=== PATIENT | female | born 1970 | race African-American/Black ===

== ENCOUNTER 2016-09-17 05:51 | Emergency (ER) | payer BC, OTHER ==
[~2016-09-17] VITALS: Ht 162.6 cm; Wt 65.0 kg
[2016-09-17 05:53] VITALS: Ht 162.6 cm; Wt 65.0 kg
[2016-09-17] MEDS ORDERED: KETOROLAC 60 MG INJ IM STA (06:32)
--- NOTE | 2016-09-17 07:59 | RADRPT ---
PROCEDURE: CHEST - 1 VIEW CLINICAL INDICATION: 45-year-old female with chest pain. TECHNIQUE: A single frontal PA view of the chest was performed. The images were reviewed on a PAC S workstation. COMPARISON: None. FINDINGS: The cardiomediastinal silhouette has a normal appearance. There is no evidence for an infiltrate. There is no evidence for congestive heart failure. There is no evidence for pneumothorax. The osseou s structures are intact. IMPRESSION: No evidence for active cardiopulmonary disease. .Donovan Rockwell MD, MD Date Time Electronically viewed and signed by .Donovan Rockwell MD, on 09/17/2016 07:58 .M/
--- NOTE | 2016-09-17 07:59 | RADRPT ---
PROCEDURE: LEFT SHOULDER CLINICAL INDICATION: 45-year-old female with left shoulder pain. TECHNIQUE: Three views of the left shoulder were obtained. The images reviewed on a PACS workstati on. COMPARISON: Chest x-ray obtained concurrently. FINDINGS: No evidence of fracture or dislocation is seen. The glenohumeral and acromioclavicular joint spaces appear preserved. Limited views of the clavicle and thorax are unremarkable. IMPRESSION: Unremarkable left shoulder radiographs. .Donovan Rockwell MD, Date Time Electronically viewed and signed by .Donovan Rockwell MD, on 09/17/2016 07:59 .M/
--- NOTE | 2016-09-17 08:02 | RADRPT ---
PROCEDURE: LUMBAR SPINE - 3 VIEWS CLINICAL INDICATION: 45-year-old female with back pain. TECHNIQUE: AP, lateral and cone-down lateral view of the lumbar spine were obtained. The images we re reviewed on a PACS workstation. COMPARISON: None. FINDINGS: The lumbar vertebral bodies and disk spaces have normal heights and anatomic alignment. No evidence of fracture or subluxation is seen. There are small anterior osteophytes at L3-4 no 04/05. No signi ficant spondylolisthesis is seen. The partially visualized sacrum is unremarkable. The sacroiliac jerome ints are intact. There is mild retained stool identified within the partially visualized colon witho ut an obstructive pattern. There is a metallic umbilical piercing. IMPRESSION: 1. Unremarkable lumbar spine radiographs. 2. Retained stool. .Donovan Rockwell MD, Date Time Electronically viewed and signed by .Donovan Rockwell MD, on 09/17/2016 08:01 .Leny/
[2016-09-17] MEDS ORDERED: CYCL-319 PO (08:25)
[2016-09-17] MEDS ORDERED: IBUP-1542 PO (08:25)
--- NOTE | 2016-09-17 12:53 | ERD ---
ER Documentation Chief Complaint Date/Time DATE: 09/17/16 TIME: 12:50 Chief Complaint sp ground level fall, back pain HPI 45-year-old female patient with no significant past medical history presents to the ED complaining of a ground-level fall that occurred yesterday. States that she accidentally tripped and fell. Denies any head or neck injuries. Denies any loss of consciousness. States that she landed on her left shoulder, left side of her posterior back. Describes the pain as achy and rates it a 10 out of 10. States that she took ibuprofen for her pain but it only slightly alleviated her pain. Denies any saddle anesthesia, urine or bowel incontinence , urinary retention, abdominal pain, nausea, vomiting. Denies any headache, weakness, numbness or tingling, fever, chills. ROS All systems reviewed and are negative except as per history of present illness. Medications Home Meds Active Scripts Ibuprofen* (Motrin*) 600 Mg Tab, 600 MG PO Q6, #30 TAB take with food Prov:JOE PALM PA-C 09/17/16 Cyclobenzaprine Hcl* (Cyclobenzaprine Hcl*) 10 Mg Tablet, 10 MG PO TID, #15 TAB Prov:JOE PALM PA-C 09/17/16 Allergies Allergies: Coded Allergies: No Known Allergy (Unverified , 01/13/13) PMhx/Soc Medical and Surgical Hx: pt denies Medical Hx, pt denies Surgical Hx History of Surgery: No Anesthesia Reaction: No Hx Neurological Disorder: No Hx Respiratory Disorders: No Hx Cardiac Disorders: No Hx Psychiatric Problems: No Hx Miscellaneous Medical Probl: No Hx Alcohol Use: Yes Hx Substance Use: No Hx Tobacco Use: Yes Smoking Status: Current every day smoker Physical Exam Vitals Vital Signs Date Time Temp Pulse Resp B/P Pulse Ox O2 Delivery O2 Flow Rate FiO2 09/17/16 05:53 97.8 74 20 122/55 99 Physical Exam Const: [id number], well-nourished. In no acute distress. Head: Atraumatic, normocephalic Eyes: Normal Conjunctiva without injection. No purulent discharge. ENT: Normal external ear, nose. Moist oropharynx without tonsillar exudates. Non -erythematous pharynx. Uvula midline. No drooling. No trismus. Neck: No cervical midline tenderness. Full range of motion. No meningismus. No cervical lymphadenopathy. No JVD. Resp: Clear to auscultation bilaterally. No wheezing, rhonchi, rales, or crackles. No accessory muscle use. No retractions. Cardio: Regular rate and rhythm. No murmurs, rubs or gallops. Abd: Soft, nontender, non distended. Normal bowel sounds. No palpable masses. No rebound tenderness. No guarding. Negative McBurney's point. Negative psoas sign. Negative obturator sign. Skin: No petechiae or rashes Back: No midline tenderness. No CVA tenderness. Tenderness to palpation of left lumbar muscles. Ext: No cyanosis, or edema. Tenderness to palpation of the proximal posterior humerus. No erythema, edema. No deformities. Neur: Awake and alert. Normal gait. Normal coordination. Psych: Normal Mood and Affect Results 24 hrs Current Medications Medications (Trade) Dose Ordered Sig/Surendra Route PRN Reason Start Time Stop Time Status Last Admin Dose Admin Ketorolac Tromethamine (Toradol) 60 mg ONCE STAT IM 09/17/16 06:32 09/17/16 06:35 DC 09/17/16 06:43 Procedures/MDM This is a 45-year-old female patient with no significant past medical history presents the ED complaining of a mechanical fall that occurred earlier today. Denies any neck pain. Patient is afebrile and nontoxic-appearing. A lumbar x- ray, chest x-ray, left shoulder x-ray was ordered to further evaluate patient. PROCEDURE: CHEST - 1 VIEW CLINICAL INDICATION: 45-year-old female with chest pain. TECHNIQUE: A single frontal PA view of the chest was performed. The images were reviewed on a PACS workstation. COMPARISON: None. FINDINGS: The cardiomediastinal silhouette has a normal appearance. There is no evidence for an infiltrate. There is no evidence for congestive heart failure. There is no evidence for pneumothorax. The osseous structures are intact. IMPRESSION: No evidence for active cardiopulmonary disease. PROCEDURE: LUMBAR SPINE - 3 VIEWS CLINICAL INDICATION: 45-year-old female with back pain. TECHNIQUE: AP, lateral and cone-down lateral view of the lumbar spine were obtained. The images were reviewed on a PACS workstation. COMPARISON: None. FINDINGS: The lumbar vertebral bodies and disk spaces have normal heights and anatomic alignment. No evidence of fracture or subluxation is seen. There are small anterior osteophytes at L3-4 no 04/05. No significant spondylolisthesis is seen. The partially visualized sacrum is unremarkable. The sacroiliac joints are intact. There is mild retained stool identified within the partially visualized colon without an obstructive pattern. There is a metallic umbilical piercing. IMPRESSION: 1. Unremarkable lumbar spine radiographs. 2. Retained stool. PROCEDURE: LEFT SHOULDER CLINICAL INDICATION: 45-year-old female with left shoulder pain. TECHNIQUE: Three views of the left shoulder were obtained. The images reviewed on a PACS workstation. COMPARISON: Chest x-ray obtained concurrently. FINDINGS: No evidence of fracture or dislocation is seen. The glenohumeral and acromioclavicular joint spaces appear preserved. Limited views of the clavicle and thorax are unremarkable. IMPRESSION: Unremarkable left shoulder radiographs. Patient likely sustained contusions/sprains however no fractures/dislocations. Patient is ambulating here in the ED without difficulty. Denies saddle anesthesia, numbness or tingling, urine or bowel incontinence, weakness. Low suspicion for cauda equina syndrome, cord compression, nephrolithiasis, aortic aneurysm, aortic dissection, epidural abscess, spinal hematoma, malignancy, pyelonephritis, or other emergent conditions. Low suspicion for fractures, dislocations, acute myocardial infarction, pneumothorax, pneumonia, cardiac tamponade, pulmonary embolism, pleural effusion, AAA, aortic dissection, Boerhaave's syndrome, cardiac dysrhythmias,meningitis, intracranial bleed, seizure, stroke, TIA or other emergent conditions. Discharge medications: Ibuprofen, Flexeril Follow up with primary care physician in 1-2 days. Instructed patient to return to the ED sooner for any worsening symptoms. Patient's questions were answered. Patient understood and agreed with discharge plan. Patient discharged stable. Departure Diagnosis: Primary Impression: Injury of back Encounter type: initial encounter Qualified Code: S39.92XA - Injury of back , initial encounter Additional Impression: Shoulder injury Encounter type: initial encounter Laterality: left Qualified Code: S49.92XA - Shoulder injury, left, initial encounter Condition: Stable Patient Instructions: Back Pain (Acute Or Chronic), Shoulder Pain (Uncertain Cause) Referrals: [facility] YOU HAVE RECEIVED A MEDICAL SCREENING EXAM AND THE RESULTS INDICATE THAT YOU DO NOT HAVE A CONDITION THAT REQUIRES URGENT TREATMENT IN THE EMERGENCY DEPARTMENT. FURTHER EVALUATION AND TREATMENT OF YOUR CONDITION CAN WAIT UNTIL YOU ARE SEEN IN YOUR DOCTORS OFFICE WITHIN THE NEXT 1-2 DAYS. IT IS YOUR RESPONSIBILITY TO MAKE AN APPOINTMENT FOR FOLOW-UP CARE. IF YOU HAVE A PRIMARY DOCTOR --you should call your primary doctor and schedule an appointment IF YOU DO NOT HAVE A PRIMARY DOCTOR YOU CAN CALL OUR PHYSICIAN REFERRAL HOTLINE AT IF YOU CAN NOT AFFORD TO SEE A PHYSICIAN YOU CAN CHOSE FROM THE FOLLOWING [facility] [address] [facility]. [facility] [address] [facility]. [facility] [address] [facility] [facility] [address] [facility] [facility] [address] [facility]. [facility] [address] [facility]. [facility] YOU HAVE RECEIVED A MEDICAL SCREENING EXAM AND THE RESULTS INDICATE THAT YOU DO NOT HAVE A CONDITION THAT REQUIRES URGENT TREATMENT IN THE EMERGENCY DEPARTMENT. FURTHER EVALUATION AND TREATMENT OF YOUR CONDITION CAN WAIT UNTIL YOU ARE SEEN IN YOUR DOCTORS OFFICE WITHIN THE NEXT 1-2 DAYS. IT IS YOUR RESPONSIBILITY TO MAKE AN APPOINTMENT FOR FOLOW-UP CARE. IF YOU HAVE A PRIMARY DOCTOR --you should call your primary doctor and schedule and appointment IF YOU DO NOT HAVE A PRIMARY DOCTOR YOU CAN CALL OUR PHYSICIAN REFERRAL HOTLINE AT . IF YOU CAN NOT AFFORD TO SEE A PHYSICIAN YOU CAN CHOSE FROM THE FOLLOWING [facility] INSTITUTIONS: [facility] [address] [place] [address] [facility] [address] [place] [address] [facility] + [facility] [address] [place] [address] [facility]RGENT [facility]SPECIALTIES Additional Instructions: Call your primary care doctor TOMORROW for an appointment during the next 2-3 days.See the doctor sooner or return here if your condition worsens before your appointment time. JOE PALM PA-C Sep 17, 2016 12:53
== END 2016-09-17 08:42 | disposition home or self-care (01) ==
LOC: FTE 05:51
DX: S39.92XA Unspecified injury of lower back, initial encounter (principal); S49.92XA Unspecified injury of left shoulder and upper arm, initial encounter; F17.210 Nicotine dependence, cigarettes, uncomplicated; R07.9 Chest pain, unspecified; W01.0XXA Fall on same level from slipping, tripping and stumbling without subsequent striking against object, initial encounter; Y92.9 Unspecified place or not applicable
CPT/HCPCS: 71010; 72100; 73030; 96372; J1885; Z7502